=== PATIENT | female | born 1930 | race Caucasian/White ===

== ENCOUNTER 2017-07-01 12:30 | Emergency (ER) | payer MEDICARE, OTHER ==
[~2017-07-01] VITALS: Ht 152.4 cm; Wt 65.0 kg
[~2017-07-01 12:30] MED LIST: ADOXA100 PO; AMARYL4 MG PO; ASPIRIN 81M81 MG/TA2 PO; ATENOLOL25 MG PO; CARDIZEM CD 24240 MG PO; CEFTIN500 MG PO; CLEOCIN HC150 MG/CAP PO; COLACE 100100 MG/CAP PO; COREG12.5 MG PO; COZAAR 25MG25 MG/TAB PO; DESYREL 50MG50 MG PO; DIOVAN HCT 12.51 TAB PO; DIOVAN/HCT 12.51 TAB PO; DULCOLAX S10 MG/SUPP RC; GLUCOPHAGE1000 MG PO; GLUCOPHAGE500 MG/TAB PO; IPRATROPIUM BROM3 M1 IH; IRON TABLETS325 MG PO; JANUVIA 100MG100 MG PO; JANUVIA100 MG PO; LASIX 20MG TABL20 MG PO; LEVAQUIN 5500 MG/TA1 PO; LEVEMIR100 U/ML SC; LIPITOR20 MG PO; METFORMIN1000 MG PO; MILK OF MA400 MG/5 M; MYLANTA 150 ML150 M1 PO; NORVASC 10MG10 MG PO; NORVASC 5MG5 MG/TAB PO; PACERONE200 MG PO; PREVACID 30MG30 M1 PO; TENORMIN 5050 MG/TAB PO; TYLENOL 325MG325 MG PO; XARELTO10 MG PO; XARELTO15 MG PO; XARELTO20 MG PO
[2017-07-01 12:39] VITALS: BP 167/74; TEMP 98.2
[2017-07-01 13:46] LABS: BASO # 0.1 (0.0-0.2); BASO % 1.2 % (0.0-2.0); EOS # 0.1 (0.0-0.7); EOS % 1.4 % (0-4.0); GRAN # 4.8 (1.4-6.5); GRAN % 72.1 % (42.2-75.2); HEMATOCRIT 35.5 % (37.0-47.0); HEMOGLOBIN 11.7 g/dl (12.5-16.0); LYMPH # 1.1 (1.2-3.4); LYMPH % 16.6 % (20.0-51.0); MEAN CELL VOLUME 94 fl (80.0-100.0); MEAN CORPUSCULAR HEMOGLOBIN 31 pg (27.0-31.0); MEAN CORPUSCULAR HGB CONC 33 g/dl (33.0-37.0); MEAN PLATELET VOLUME 9.6 fl (7.4-10.4); MONO # 0.5 (0.1-0.6); MONO % 8.2 % (1.7-9.3); PLATELET COUNT 227 K/mm3 (130-400); RED BLOOD COUNT 3.76 M/mm3 (4.10-5.30); REDCELL DISTRIBUTION WIDTH-CV 12.9 % (11.5-14.5); WHITE BLOOD COUNT 6.6 K/mm3 (4.8-10.8)
[2017-07-01 13:57] LABS: ADJUSTED CALCIUM 9.1 mg/dL (8.4-10.2); ALANINE AMINOTRANSFERASE 24 U/L (9-52); ALBUMIN 3.7 gm/dL (3.5-5.0); ALKALINE PHOSPHATASE 100 U/L (50-136); ANION GAP 9 mmol/L (7-16); BILIRUBIN,TOTAL 0.5 mg/dL (0.0-1.0); BLOOD UREA NITROGEN 19 mg/dL (7-17); CALCIUM 8.9 mg/dL (8.4-10.2); CARBON DIOXIDE 25 mmol/L (22-30); CHLORIDE 102 mmol/L (98-107); CREATININE, serum 0.91 mg/dL (0.52-1.25); GLUCOSE 169 mg/dL (74-106); LIPASE 54 U/L (23-300); POTASSIUM 4.4 mmol/L (3.4-5.0); SODIUM 136 mmol/L (137-145); TOTAL PROTEIN 6.4 gm/dL (6.4-8.2)
[2017-07-01 13:58] LABS: C-REACTIVE PROTEIN < 0.5 mg/dL (0.0-0.9)
[2017-07-01 14:09] LABS: TROPONIN-I < 0.012 ng/mL (0.000-0.034)
[2017-07-01 14:14] LABS: PH 7 (5-8); SQUAMOUS EPITHELIAL 0-2 /hpf; URINE APPEARANCE Clear; URINE BACTERIA Rare /hpf; URINE BILIRUBIN Negative (NEGATIVE); URINE BLOOD Negative (NEGATIVE); URINE COLOR Straw; URINE GLUCOSE Negative (NEGATIVE); URINE KETONE Negative (NEGATIVE); URINE RBC 0-2 /hpf; URINE UROBILINOGEN Negative (NEGATIVE); URINE WBC None Seen /hpf
[2017-07-01] MEDS ORDERED: NORCO 325 MG-51 TAB PO (17:13)
[2017-07-01 17:28] VITALS: PULSE 76
== END 2017-07-01 17:30 | disposition home or self-care (01) ==
LOC: COL.ER 12:30
PROVIDERS: Emergency Medicine
DX: R10.32 Left lower quadrant pain (principal); T84.091A Other mechanical complication of internal left hip prosthesis, initial encounter; E11.9 Type 2 diabetes mellitus without complications; I10 Essential (primary) hypertension; E78.5 Hyperlipidemia, unspecified; Z90.49 Acquired absence of other specified parts of digestive tract; Z90.710 Acquired absence of both cervix and uterus; Z79.82 Long term (current) use of aspirin; Z79.84 Long term (current) use of oral hypoglycemic drugs
CPT/HCPCS: J2270; J2405; J7030; Q9967

== ENCOUNTER 2018-05-25 15:48 | Emergency (ER) | payer MEDICARE ==
[~2018-05-25] VITALS: Ht 152.4 cm; Wt 65.9 kg
[~2018-05-25 15:48] MED LIST changes: +NORCO 325 MG-51 TAB PO
[2018-05-25 15:50] VITALS: TEMP 98.9
[2018-05-25 18:45] VITALS: BP 142/71; PULSE 78
== END 2018-05-25 18:45 | disposition home or self-care (01) ==
LOC: COL.ER 15:48
DX: M25.552 Pain in left hip (principal); Z98.890 Other specified postprocedural states
CPT/HCPCS: J1885

== ENCOUNTER 2018-07-16 07:05 | Observation (INO) | payer MEDICARE ==
[~2018-07-16] VITALS: Ht 152.4 cm; Wt 64.5 kg
[2018-07-16 07:36] LABS: MEAN CELL VOLUME 96 fl (80.0-100.0); MEAN CORPUSCULAR HEMOGLOBIN 31 pg (27.0-31.0); MEAN CORPUSCULAR HGB CONC 33 g/dl (33.0-37.0); MEAN PLATELET VOLUME 9.4 fl (7.4-10.4); PLATELET COUNT 205 K/mm3 (130-400); REDCELL DISTRIBUTION WIDTH-CV 14.4 % (11.5-14.5)
[2018-07-16 07:38] LABS: HEMATOCRIT 30.6 % (37.0-47.0)
[2018-07-16] MEDS ORDERED: CENTRUM SILVER1 CTB PO (07:38)
[2018-07-16] MEDS ORDERED: MOBIC15 MG PO (07:39)
[2018-07-16] MEDS ORDERED: TAPAZOLE10 MG PO (07:40)
[2018-07-16] MEDS ORDERED: LEXAPRO 10MG10 MG PO ×2 (07:40→11:09)
[2018-07-16] MEDS ORDERED: MIRALAX PA17 GM/Dose PO (07:41)
[2018-07-16] MEDS ORDERED: PROBIOTIC-MAJOR PO (07:41)
[2018-07-16] MEDS ORDERED: RESTASIS MULTI5.5 ML OP (07:41)
[2018-07-16 07:48] LABS: ALBUMIN 3.1 gm/dL (3.5-5.0); BILIRUBIN,TOTAL 0.6 mg/dL (0.0-1.0); CALCIUM 7.9 mg/dL (8.4-10.2); POTASSIUM 4.4 mmol/L (3.4-5.0); TOTAL PROTEIN 5.7 gm/dL (6.4-8.2)
[2018-07-16 07:58] LABS: BAND 1 % (0-10); BASOPHIL 2 % (0-2); LYMPHOCYTE 1 % (20.0-51.0); METAMYELOCYTE 1 % (0-0); NEUTROPHILS 93 % (42.0-75.2); PLATELET ESTIMATE NORMAL (NORMAL)
[2018-07-16 07:59] LABS: POLYCHROMASIA 1+
[2018-07-16 08:16] LABS: MUCOUS Present /lpf; PH 5 (5-8); SQUAMOUS EPITHELIAL None Seen /hpf; URINE APPEARANCE Clear; URINE BACTERIA Rare /hpf; URINE BILIRUBIN Negative (NEGATIVE); URINE BLOOD Negative (NEGATIVE); URINE COLOR Yellow; URINE GLUCOSE Negative (NEGATIVE); URINE KETONE Trace (NEGATIVE); URINE LEUKOCYTE ESTERASE Trace (NEGATIVE); URINE NITRATE Positive (NEGATIVE); URINE PROTEIN(semi-quant) Negative (NEGATIVE); URINE RBC 0-2 /hpf; URINE UROBILINOGEN Negative (NEGATIVE)
[2018-07-16] MEDS ORDERED: DITROPAN 5MG TAB5 MG PO (11:11)
[2018-07-16] MEDS ORDERED: TYLENOL 500MG500 MG PO (11:15)
[2018-07-16] MEDS ORDERED: COZAAR 25MG25 MG/TAB PO (11:16)
[2018-07-16 11:50] LABS: COLLECTION METHOD CATHETER
[2018-07-16 12:17] VITALS: BP 106/42; PULSE 79; TEMP 99
[2018-07-16 12:21] VITALS: BP 110/42; PULSE 78
[2018-07-16 12:23] VITALS: BP 111/37; PULSE 71
[2018-07-16 15:37] VITALS: BP 129/52; PULSE 79; TEMP 98.9
[2018-07-16 21:24] VITALS: BP 108/41; PULSE 70; TEMP 98.2
[2018-07-17] VITALS (8 sets, daily range): BP systolic 103–131; BP diastolic 35–54; PULSE 69–84; TEMP 97.8–99
[2018-07-17 06:26] LABS: BASO # 0.1 (0.0-0.2); BASO % 0.6 % (0.0-2.0); EOS # 0.2 (0.0-0.7); EOS % 2.4 % (0-4.0); GRAN # 5.3 (1.4-6.5); GRAN % 68.1 % (42.2-75.2); LYMPH # 1.3 (1.2-3.4); LYMPH % 16.1 % (20.0-51.0); MEAN CELL VOLUME 100 fl (80.0-100.0); MEAN CORPUSCULAR HGB CONC 31 g/dl (33.0-37.0); MONO % 12.3 % (1.7-9.3); PLATELET COUNT 205 K/mm3 (130-400); RED BLOOD COUNT 2.77 M/mm3 (4.10-5.30)
[2018-07-17 06:32] LABS: CALCIUM 7.5 mg/dL (8.4-10.2); CREATININE, serum 0.89 mg/dL (0.52-1.25); HEMATOCRIT 27.8 % (37.0-47.0); HEMOGLOBIN 8.7 g/dl (12.5-16.0); MEAN CORPUSCULAR HEMOGLOBIN 31 pg (27.0-31.0); POTASSIUM 4.3 mmol/L (3.4-5.0)
[2018-07-18 00:09] VITALS: BP 114/52; PULSE 72; TEMP 98.5
[2018-07-18 04:38] VITALS: BP 111/78; PULSE 74; TEMP 98.5
[2018-07-18 06:40] LABS: BASO # 0.1 (0.0-0.2); BASO % 0.8 % (0.0-2.0); EOS # 0.3 (0.0-0.7); EOS % 3.4 % (0-4.0); GRAN # 5.8 (1.4-6.5); LYMPH % 12.2 % (20.0-51.0); MEAN CELL VOLUME 98 fl (80.0-100.0); MEAN CORPUSCULAR HGB CONC 32 g/dl (33.0-37.0); MEAN PLATELET VOLUME 10.2 fl (7.4-10.4); MONO # 0.8 (0.1-0.6); PLATELET COUNT 201 K/mm3 (130-400); RED BLOOD COUNT 2.89 M/mm3 (4.10-5.30); REDCELL DISTRIBUTION WIDTH-CV 14.8 % (11.5-14.5)
[2018-07-18 06:41] LABS: HEMATOCRIT 28.2 % (37.0-47.0); MEAN CORPUSCULAR HEMOGLOBIN 31 pg (27.0-31.0)
[2018-07-18 06:54] LABS: CALCIUM 7.9 mg/dL (8.4-10.2); CREATININE, serum 0.82 mg/dL (0.52-1.25); POTASSIUM 4.3 mmol/L (3.4-5.0)
[2018-07-18 07:31] VITALS: BP 160/66; PULSE 76; TEMP 98.9
[2018-07-18] MEDS ORDERED: OMNICEF 300MG300 MG PO (09:41)
[2018-07-18 13:45] VITALS: BP 160/66; PULSE 76; TEMP 98.9
== END 2018-07-18 13:51 ==
LOC: COL.ER 07:05 → MEDICAL 09:03
PROVIDERS: Family Medicine; Internal Medicine; Physician Assistant
DX: R55 Syncope and collapse (principal); E11.9 Type 2 diabetes mellitus without complications; N39.0 Urinary tract infection, site not specified; D72.828 Other elevated white blood cell count; I48.0 Paroxysmal atrial fibrillation; E78.5 Hyperlipidemia, unspecified; R79.89 Other specified abnormal findings of blood chemistry; Z85.3 Personal history of malignant neoplasm of breast; Z95.2 Presence of prosthetic heart valve; Z95.0 Presence of cardiac pacemaker; Z79.82 Long term (current) use of aspirin; Z79.4 Long term (current) use of insulin; Z90.710 Acquired absence of both cervix and uterus; Z90.12 Acquired absence of left breast and nipple; Z96.643 Presence of artificial hip joint, bilateral
CPT/HCPCS: 99232-AI; G0378; G8978-GP; G8979-GP; J0696; J1644; J1815; J7030

== ENCOUNTER → 2018-08-23 | Outpatient (CLI) | payer MEDICARE, OTHER ==
[~2018-08-23] MED LIST changes: +CENTRUM SILVER1 CTB PO; +DITROPAN 5MG TAB5 MG PO; +LEXAPRO 10MG10 MG PO; +MIRALAX PA17 GM/Dose PO; +MOBIC15 MG PO; +OMNICEF 300MG300 MG PO; +PROBIOTIC-MAJOR PO; +RESTASIS MULTI5.5 ML OP; +TAPAZOLE10 MG PO; +TYLENOL 500MG500 MG PO
== END ==
LOC: COL.RAD 10:55
DX: M51.36 Other intervertebral disc degeneration, lumbar region (principal); M48.061 Spinal stenosis, lumbar region without neurogenic claudication; M43.17 Spondylolisthesis, lumbosacral region; M47.816 Spondylosis without myelopathy or radiculopathy, lumbar region; Z90.49 Acquired absence of other specified parts of digestive tract; Z96.643 Presence of artificial hip joint, bilateral; R10.84 Generalized abdominal pain; Z90.710 Acquired absence of both cervix and uterus
CPT/HCPCS: Q9967

== ENCOUNTER → 2018-09-16 | Outpatient (CLI) | payer MEDICARE, OTHER | LOC: COL.RAD 08:01 | DX: K31.84 Gastroparesis (principal) | CPT/HCPCS: A9541 ==

== ENCOUNTER 2018-11-11 10:32 | Emergency (ER) | payer MEDICARE, OTHER ==
[~2018-11-11] VITALS: Ht 152.4 cm; Wt 57.7 kg
[2018-11-11 10:36] VITALS: TEMP 98
[2018-11-11 11:49] LABS: BASO # 0.1 (0.0-0.2); BASO % 1.1 % (0.0-2.0); EOS # 0.1 (0.0-0.7); GRAN # 5.5 (1.4-6.5); GRAN % 70.2 % (42.2-75.2); HEMATOCRIT 37.2 % (37.0-47.0); HEMOGLOBIN 12.1 g/dl (12.5-16.0); LYMPH # 1.5 (1.2-3.4); LYMPH % 18.6 % (20.0-51.0); MEAN CELL VOLUME 98 fl (80.0-100.0); MEAN CORPUSCULAR HEMOGLOBIN 32 pg (27.0-31.0); MEAN CORPUSCULAR HGB CONC 33 g/dl (33.0-37.0); MEAN PLATELET VOLUME 9.3 fl (7.4-10.4); MONO # 0.7 (0.1-0.6); MONO % 8.7 % (1.7-9.3); PLATELET COUNT 270 K/mm3 (130-400); RED BLOOD COUNT 3.81 M/mm3 (4.10-5.30); REDCELL DISTRIBUTION WIDTH-CV 13.7 % (11.5-14.5)
[2018-11-11 11:56] LABS: COLLECTION METHOD CATHETER
[2018-11-11 11:57] LABS: PROTHROMBIN TIME 11.5 SECONDS (9.7-12.8)
[2018-11-11 12:01] LABS: ALANINE AMINOTRANSFERASE 21 U/L (9-52); ALBUMIN 3.1 gm/dL (3.5-5.0); ALKALINE PHOSPHATASE 106 U/L (50-136); ANION GAP 5 mmol/L (7-16); AST,SGOT 24 U/L (15-37); BILIRUBIN,TOTAL < 0.1 mg/dL (0.0-1.0); BLOOD UREA NITROGEN 15 mg/dL (7-17); CALCIUM 8.4 mg/dL (8.4-10.2); CARBON DIOXIDE 26 mmol/L (22-30); CHLORIDE 106 mmol/L (98-107); CREATINE KINASE 25 U/L (30-135); CREATININE, serum 0.81 mg/dL (0.52-1.25); GLUCOSE 70 mg/dL (74-106); POTASSIUM 4.7 mmol/L (3.4-5.0); SODIUM 136 mmol/L (137-145); TOTAL PROTEIN 5.4 gm/dL (6.4-8.2)
[2018-11-11 12:05] LABS: PH 6 (5-8); SQUAMOUS EPITHELIAL None Seen /hpf; URINE APPEARANCE Clear; URINE BACTERIA Occasional /hpf; URINE BILIRUBIN Negative (NEGATIVE); URINE BLOOD Negative (NEGATIVE); URINE COLOR Yellow; URINE GLUCOSE Negative (NEGATIVE); URINE KETONE Negative (NEGATIVE); URINE LEUKOCYTE ESTERASE Trace (NEGATIVE); URINE NITRATE Negative (NEGATIVE); URINE PROTEIN(semi-quant) Negative (NEGATIVE); URINE RBC 0-2 /hpf; URINE UROBILINOGEN Negative (NEGATIVE)
[2018-11-11 12:14] LABS: TROPONIN-I < 0.012 ng/mL (0.000-0.034)
[2018-11-11] MEDS ORDERED: CEFTIN500 MG PO (13:28)
[2018-11-11 14:09] VITALS: BP 142/71; PULSE 72
== END 2018-11-11 14:11 | disposition home or self-care (01) ==
LOC: COL.ER 10:32
PROVIDERS: Emergency Medicine
DX: N39.0 Urinary tract infection, site not specified (principal); I48.91 Unspecified atrial fibrillation; E11.9 Type 2 diabetes mellitus without complications; R53.1 Weakness; Z90.49 Acquired absence of other specified parts of digestive tract; Z90.710 Acquired absence of both cervix and uterus; Z90.89 Acquired absence of other organs; Z95.0 Presence of cardiac pacemaker; Z85.3 Personal history of malignant neoplasm of breast; Z90.12 Acquired absence of left breast and nipple; Z79.82 Long term (current) use of aspirin
CPT/HCPCS: A4216; J0696; J7030

== ENCOUNTER → 2018-12-02 | Outpatient (REF) ==
[2018-12-02 18:13] LABS: COLLECTION METHOD CATHETER
[2018-12-02 18:16] LABS: BASO # 0.1 (0.0-0.2); BASO % 1.4 % (0.0-2.0); EOS # 0.2 (0.0-0.7); EOS % 2.7 % (0-4.0); GRAN # 5.6 (1.4-6.5); GRAN % 66.3 % (42.2-75.2); HEMOGLOBIN 11.1 g/dl (12.5-16.0); LYMPH # 1.7 (1.2-3.4); LYMPH % 19.6 % (20.0-51.0); MEAN CELL VOLUME 98 fl (80.0-100.0); MEAN CORPUSCULAR HEMOGLOBIN 32 pg (27.0-31.0); MEAN CORPUSCULAR HGB CONC 32 g/dl (33.0-37.0); MEAN PLATELET VOLUME 9.9 fl (7.4-10.4); MONO # 0.8 (0.1-0.6); MONO % 9.4 % (1.7-9.3); PLATELET COUNT 224 K/mm3 (130-400); REDCELL DISTRIBUTION WIDTH-CV 13.5 % (11.5-14.5)
[2018-12-02 18:17] LABS: HEMATOCRIT 34.3 % (37.0-47.0)
[2018-12-02 18:21] LABS: PH 5 (5-8); SQUAMOUS EPITHELIAL 0-2 /hpf; URINE APPEARANCE Clear; URINE BACTERIA None Seen /hpf; URINE BILIRUBIN Negative (NEGATIVE); URINE BLOOD Negative (NEGATIVE); URINE COLOR Yellow; URINE GLUCOSE Negative (NEGATIVE); URINE KETONE Negative (NEGATIVE); URINE LEUKOCYTE ESTERASE Negative (NEGATIVE); URINE NITRATE Negative (NEGATIVE); URINE PROTEIN(semi-quant) Negative (NEGATIVE); URINE UROBILINOGEN Negative (NEGATIVE)
[2018-12-02 18:32] LABS: CALCIUM 8.4 mg/dL (8.4-10.2); CREATININE, serum 0.84 mg/dL (0.52-1.25); POTASSIUM 5.1 mmol/L (3.4-5.0)
== END ==
LOC: ZCOL.LAB 18:12
PROVIDERS: Internal Medicine
DX: R53.1 Weakness (principal)

== ENCOUNTER 2019-04-06 12:21 | Inpatient (IN) | payer MEDICARE, OTHER ==
[~2019-04-06] VITALS: Ht 152.4 cm; Wt 61.6 kg
[2019-04-06 12:53] LABS: BASO # 0.1 (0.0-0.2); BASO % 1.5 % (0.0-2.0); EOS # 0.2 (0.0-0.7); GRAN # 5.7 (1.4-6.5); HEMOGLOBIN 10.2 g/dl (12.5-16.0); LYMPH # 1.4 (1.2-3.4); LYMPH % 16.9 % (20.0-51.0); MEAN CELL VOLUME 97 fl (80.0-100.0); MEAN CORPUSCULAR HEMOGLOBIN 31 pg (27.0-31.0); MEAN CORPUSCULAR HGB CONC 32 g/dl (33.0-37.0); MEAN PLATELET VOLUME 9.9 fl (7.4-10.4); MONO # 0.7 (0.1-0.6); MONO % 8.2 % (1.7-9.3); PLATELET COUNT 201 K/mm3 (130-400); RED BLOOD COUNT 3.31 M/mm3 (4.10-5.30); REDCELL DISTRIBUTION WIDTH-CV 14.6 % (11.5-14.5)
[2019-04-06 12:57] LABS: HEMATOCRIT 32.2 % (37.0-47.0)
[2019-04-06 13:00] LABS: PROTHROMBIN TIME 11.8 SECONDS (9.7-12.8)
[2019-04-06 13:02] LABS: PARTIAL THROMBOPLASTIN TIME 29.7 SECONDS (26.0-37.0)
[2019-04-06 13:04] LABS: ALANINE AMINOTRANSFERASE 22 U/L (9-52); ALBUMIN 3.2 gm/dL (3.5-5.0); ALKALINE PHOSPHATASE 89 U/L (50-136); ANION GAP 8 mmol/L (7-16); AST,SGOT 23 U/L (15-37); BILIRUBIN,TOTAL 0.3 mg/dL (0.0-1.0); BLOOD UREA NITROGEN 28 mg/dL (7-17); CALCIUM 8.5 mg/dL (8.4-10.2); CARBON DIOXIDE 23 mmol/L (22-30); CHLORIDE 107 mmol/L (98-107); CREATININE, serum 1.16 (0.52-1.25); GLUCOSE 189 mg/dL (74-106); MAGNESIUM 2.1 mg/dL (1.6-2.3); PHOSPHOROUS 4.4 mg/dL (2.5-4.5); POTASSIUM 5.1 mmol/L (3.4-5.0); SODIUM 138 mmol/L (137-145); TOTAL PROTEIN 5.7 gm/dL (6.4-8.2)
[2019-04-06 13:21] LABS: TROPONIN-I < 0.012 ng/mL (0.000-0.035)
[2019-04-06] MEDS ORDERED: CLARITIN 1010 MG/TAB PO (13:25)
[2019-04-06] MEDS ORDERED: MANNOSE PO (13:27)
[2019-04-06] MEDS ORDERED: REGLAN 5MG T5 MG/TAB PO (13:27)
[2019-04-06] MEDS ORDERED: IMODIUM 2MG CAPS2 MG PO (13:29)
[2019-04-06] MEDS ORDERED: MIRTAZAPINE7.5 MG PO (13:29)
[2019-04-06] MEDS ORDERED: LIPITOR20 MG PO (13:30)
[2019-04-06] MEDS ORDERED: MIRALAX PA17 GM/Dose PO (13:34)
[2019-04-06] MEDS ORDERED: PROBIOTIC-SUNMARK PO (13:34)
[2019-04-06] MEDS ORDERED: RESTASIS MULTI5.5 ML OP (13:35)
[2019-04-06] MEDS ORDERED: JANUVIA 100MG100 MG PO (13:36)
[2019-04-06 16:40] VITALS: BP 107/47; PULSE 116; TEMP 98.2
[2019-04-06 16:47] VITALS: BP 124/75; PULSE 120
[2019-04-06 16:49] VITALS: BP 121/71; PULSE 116
[2019-04-06 16:51] VITALS: BP 138/69; PULSE 121
[2019-04-06 16:54] LABS: COLLECTION METHOD CATHETER
[2019-04-06 17:04] LABS: PH 5 (5-8); SQUAMOUS EPITHELIAL None Seen /hpf; URINE APPEARANCE Clear; URINE BACTERIA None Seen /hpf; URINE BILIRUBIN Negative (NEGATIVE); URINE BLOOD Negative (NEGATIVE); URINE COLOR Straw; URINE GLUCOSE Negative (NEGATIVE); URINE KETONE Negative (NEGATIVE); URINE LEUKOCYTE ESTERASE Negative (NEGATIVE); URINE NITRATE Negative (NEGATIVE); URINE PROTEIN(semi-quant) Negative (NEGATIVE); URINE RBC 0-2 /hpf; URINE UROBILINOGEN Negative (NEGATIVE)
--- NOTE | 2019-04-06 18:18 | NUR ---
Pt admitted to unit around 1630 from the ED. Pt has RF IV patent and no redness or infiltration noted. Pt bilateral hands show some edema. Pt BLE slight edema noted. Pt up with assist and walker. Pt alert and oriented and neuro WNL. Pt denies SOB or chest pain at rest. Pt oriented to room and has call light in reach. Pt Ddimer critical and called to Dr. Curry. Order to give scheduled lovenox early.
--- NOTE | 2019-04-06 20:30 | NUR ---
Initial shift assessment done- pleasant, alert/oriented denies pain. states she feels ok tonight- denies SOB, Tele on- afib/paced, no requests-
[2019-04-06 21:02] VITALS: BP 113/70; PULSE 83; TEMP 98.9
[2019-04-07] VITALS (7 sets, daily range): BP systolic 100–134; BP diastolic 59–90; PULSE 68–109; TEMP 98–99
[2019-04-07 06:10] LABS: BASO # 0.1 (0.0-0.2); BASO % 1.6 % (0.0-2.0); EOS # 0.3 (0.0-0.7); EOS % 4.7 % (0-4.0); GRAN # 3.9 (1.4-6.5); GRAN % 60.9 % (42.2-75.2); HEMATOCRIT 33.1 % (37.0-47.0); HEMOGLOBIN 10.4 g/dl (12.5-16.0); LYMPH # 1.4 (1.2-3.4); LYMPH % 22.4 % (20.0-51.0); MEAN CELL VOLUME 97 fl (80.0-100.0); MEAN CORPUSCULAR HEMOGLOBIN 31 pg (27.0-31.0); MEAN CORPUSCULAR HGB CONC 31 g/dl (33.0-37.0); MEAN PLATELET VOLUME 9.8 fl (7.4-10.4); MONO # 0.6 (0.1-0.6); MONO % 10.1 % (1.7-9.3); PLATELET COUNT 197 K/mm3 (130-400); REDCELL DISTRIBUTION WIDTH-CV 14.8 % (11.5-14.5)
[2019-04-07 06:19] LABS: ANION GAP 8 mmol/L (7-16); BLOOD UREA NITROGEN 25 mg/dL (7-17); CARBON DIOXIDE 27 mmol/L (22-30); CHLORIDE 106 mmol/L (98-107); CREATININE, serum 1.16 (0.52-1.25); GLUCOSE 139 mg/dL (74-106); POTASSIUM 4.5 mmol/L (3.4-5.0); SODIUM 141 mmol/L (137-145)
[2019-04-07 06:32] LABS: TROPONIN-I < 0.012 ng/mL (0.000-0.035)
--- NOTE | 2019-04-07 06:43 | NUR ---
Quiet night- no requests, Up to bathroom with assist/walker-voided 200cc clear yellow urine- depends was also very wet- cleaned up and back to bed- very pleasant, VSS
--- NOTE | 2019-04-07 11:48 | NUR ---
GRANT met with the patient and patient's [id number] to discuss discharge plan. The patient lives at [facility] in [facility]. She reports needing assistance with bathing and has a 4WW. She states that she has [facility] and that they check in on her twice a day and help her with bathing and medication management. GRANT contacted and confirmed services from [facility] and [facility]. [facility] states her services are private pay and are for the nursing and home health aides. The patient's PCP is Dr. Jack Hummel and she receives her medications by delivery through [facility]. She reports no difficulties obtaining her meds. The patient's advanced directive are in EMR. The patient plans to return back to her apartment at [facility] and resume services from [facility] upon discharge. PT/OT have been ordered. GRANT to continue to follow.
--- NOTE | 2019-04-07 11:56 | NUR ---
Assessment completed, alert/oriented, vital signs stable, heart still in A.fib rate 110-120/ Cardiology has been consulted and were by this morning to see patient, she is diuresing well with lasix, left arm still a little swollen and D-dymer was elevated/ doing LUE ultrasound to r/o DVT, no resp.difficulty at rest/ does have some dyspnea with exertion/ fine crackles in bases, she denies other needs at this time, will discuss plan of care with hospitalist
[2019-04-08 04:21] VITALS: BP 94/66; PULSE 84; TEMP 98.1
--- NOTE | 2019-04-08 06:07 | NUR ---
PT HAD UNEVENTFUL NOC. NO ISSUES OR CONSERNS VOICED. APPEARED TO HAVE SLEPT WELL.
[2019-04-08 07:10] LABS: BASO # 0.1 (0.0-0.2); BASO % 1.5 % (0.0-2.0); EOS # 0.3 (0.0-0.7); EOS % 4.2 % (0-4.0); GRAN # 4.1 (1.4-6.5); GRAN % 58.8 % (42.2-75.2); HEMOGLOBIN 10.4 g/dl (12.5-16.0); LYMPH # 1.6 (1.2-3.4); LYMPH % 23.4 % (20.0-51.0); MEAN CELL VOLUME 99 fl (80.0-100.0); MEAN CORPUSCULAR HEMOGLOBIN 31 pg (27.0-31.0); MEAN CORPUSCULAR HGB CONC 31 g/dl (33.0-37.0); MEAN PLATELET VOLUME 9.7 fl (7.4-10.4); MONO # 0.8 (0.1-0.6); MONO % 11.8 % (1.7-9.3); PLATELET COUNT 198 K/mm3 (130-400); RED BLOOD COUNT 3.37 M/mm3 (4.10-5.30); REDCELL DISTRIBUTION WIDTH-CV 14.8 % (11.5-14.5)
[2019-04-08 07:12] LABS: HEMATOCRIT 33.2 % (37.0-47.0)
[2019-04-08 07:22] LABS: CALCIUM 9.1 mg/dL (8.4-10.2); CREATININE, serum 1.25 (0.52-1.25); MAGNESIUM 1.9 mg/dL (1.6-2.3); POTASSIUM 4.4 mmol/L (3.4-5.0)
[2019-04-08 08:10] VITALS: BP 103/64; PULSE 89; TEMP 97.6
--- NOTE | 2019-04-08 11:51 | NUR ---
Asssessment completed, alert/oriented, vital signs stable, denies pain or discomfort, stated she slept good and feels better today, she has been diuresing well on the lasix/ she is partially incontinent so documented I/O are not very accurate / but she is having good output, lungs sound better today/ NO crackles noted in bases as there were yesterday, heart irregular but rate controlled, she dnies other needs
[2019-04-08] MEDS ORDERED: ELIQUIS 2.5 PO (11:53)
--- NOTE | 2019-04-08 11:53 | NUR ---
GRANT met with the patient to review disharge plan and to discuss occupational therapies recommendation of home health. The patient reports that she would be agreeable to adding on therapy services and longterm. GRANT contacted and faxed updates to Eddie at [facility]. Eddie reports that they can accept the patient for those services. The patient is to discharge back to [facility] with home health services for longterm/PT/OT and private duty aides through [facility]. No additional needs at this time.
[2019-04-08] MEDS ORDERED: LOPRESSOR 550 MG/TAB PO (11:54)
[2019-04-08] MEDS ORDERED: LASIX 20MG TABL20 MG PO (11:54)
--- NOTE | 2019-04-08 15:42 | NUR ---
Discharge instructions reviewed with the patient, instructed to follow up with PCP and Cardiology as we have shceudled for her, Home health / [facility] independent living situation was taken care of by social work prior to discharge, patient has a nurse that sets up her meds in a weekly organizer/ our pharmacist has spoke with her and she will be setting the patient medications up for her today as there are several new meds / changes/ meds to stop, I removed her IV and telemetry, she is leaving with her son in-law, i personally escorted them out the door
== END 2019-04-08 15:44 | DRG 308 ==
LOC: COL.ER 12:21 → MEDICAL 15:07
PROVIDERS: Emergency Medicine; Nurse Practitioner Family; ADMIT Internal Medicine
DX: I48.0 Paroxysmal atrial fibrillation (principal); I50.23 Acute on chronic systolic (congestive) heart failure; I50.32 Chronic diastolic (congestive) heart failure; I11.0 Hypertensive heart disease with heart failure; E89.0 Postprocedural hypothyroidism; E11.43 Type 2 diabetes mellitus with diabetic autonomic (poly)neuropathy; I95.1 Orthostatic hypotension; K31.84 Gastroparesis; I08.1 Rheumatic disorders of both mitral and tricuspid valves; I25.10 Atherosclerotic heart disease of native coronary artery without angina pectoris; K21.9 Gastro-esophageal reflux disease without esophagitis; I45.10 Unspecified right bundle-branch block; E78.5 Hyperlipidemia, unspecified; I27.20 Pulmonary hypertension, unspecified; R53.81 Other malaise; Z79.82 Long term (current) use of aspirin; Z85.3 Personal history of malignant neoplasm of breast; Z87.440 Personal history of urinary (tract) infections; Z95.0 Presence of cardiac pacemaker; Z95.2 Presence of prosthetic heart valve; Z86.73 Personal history of transient ischemic attack (TIA), and cerebral infarction without residual deficits; Z90.710 Acquired absence of both cervix and uterus
CPT/HCPCS: 99223-AI; 99233-AI; 99238; A9284; J1650; J1815

== ENCOUNTER → 2019-04-24 | Outpatient (CLI) | payer MEDICARE, OTHER ==
[~2019-04-24] MED LIST changes: +CLARITIN 1010 MG/TAB PO; +ELIQUIS 2.5 PO; +IMODIUM 2MG CAPS2 MG PO; +LOPRESSOR 550 MG/TAB PO; +MANNOSE PO; +MIRTAZAPINE7.5 MG PO; +PROBIOTIC-SUNMARK PO; +REGLAN 5MG T5 MG/TAB PO
[2019-04-24 18:39] LABS: COLLECTION METHOD CLEAN CATCH
[2019-04-24 18:47] LABS: PH 5 (5-8); SQUAMOUS EPITHELIAL 0-2 /hpf; URINE APPEARANCE Clear; URINE BACTERIA None Seen /hpf; URINE BILIRUBIN Negative (NEGATIVE); URINE BLOOD Negative (NEGATIVE); URINE COLOR Yellow; URINE GLUCOSE Negative (NEGATIVE); URINE KETONE Negative (NEGATIVE); URINE LEUKOCYTE ESTERASE Negative (NEGATIVE); URINE NITRATE Negative (NEGATIVE); URINE PROTEIN(semi-quant) Negative (NEGATIVE); URINE RBC None Seen /hpf; URINE UROBILINOGEN Negative (NEGATIVE)
== END ==
LOC: ZCOL.LAB 17:26
PROVIDERS: Internal Medicine
DX: N39.0 Urinary tract infection, site not specified (principal)

== ENCOUNTER → 2019-05-18 | Outpatient (CLI) | payer MEDICARE, OTHER ==
[2019-05-18 10:16] LABS: COLLECTION METHOD CLEAN CATCH
[2019-05-18 10:29] LABS: PH 7 (5-8); SQUAMOUS EPITHELIAL None Seen /hpf; URINE APPEARANCE Clear; URINE BACTERIA None Seen /hpf; URINE BILIRUBIN Negative (NEGATIVE); URINE BLOOD Negative (NEGATIVE); URINE COLOR Straw; URINE GLUCOSE Negative (NEGATIVE); URINE KETONE Negative (NEGATIVE); URINE LEUKOCYTE ESTERASE Negative (NEGATIVE); URINE NITRATE Negative (NEGATIVE); URINE PROTEIN(semi-quant) Negative (NEGATIVE); URINE RBC 0-2 /hpf; URINE UROBILINOGEN Negative (NEGATIVE)
== END ==
LOC: ZLAB.STJ 09:57 → ZCOL.LAB 09:57
PROVIDERS: Internal Medicine
DX: N39.0 Urinary tract infection, site not specified (principal)

== ENCOUNTER → 2019-06-23 | Outpatient (CLI) | payer MEDICARE, OTHER ==
[2019-06-23 23:31] LABS: COLLECTION METHOD CLEAN CATCH
[2019-06-23 23:39] LABS: MUCOUS Present /lpf; PH 5 (5-8); SQUAMOUS EPITHELIAL 0-2 /hpf; URINE APPEARANCE Hazy; URINE BACTERIA Rare /hpf; URINE BILIRUBIN Negative (NEGATIVE); URINE BLOOD Negative (NEGATIVE); URINE CALCIUM OXALATE CRYSTAL Present /hpf; URINE COLOR Yellow; URINE GLUCOSE Negative (NEGATIVE); URINE KETONE Negative (NEGATIVE); URINE LEUKOCYTE ESTERASE Trace (NEGATIVE); URINE NITRATE Negative (NEGATIVE); URINE PROTEIN(semi-quant) Negative (NEGATIVE); URINE RBC 0-2 /hpf; URINE UROBILINOGEN Negative (NEGATIVE)
== END ==
LOC: ZCOL.LAB 23:23
PROVIDERS: Internal Medicine
DX: Z01.89 Encounter for other specified special examinations (principal)

== ENCOUNTER → 2019-10-16 | Outpatient (CLI) | payer MEDICARE, OTHER ==
[2019-10-16 12:29] LABS: ALBUMIN 3.5 gm/dL (3.5-5.0); BILIRUBIN,TOTAL 0.3 mg/dL (0.0-1.0); CALCIUM 8.7 mg/dL (8.4-10.2); CREATININE, serum 1.06 (0.52-1.25); POTASSIUM 4.7 mmol/L (3.4-5.0); TOTAL PROTEIN 6.3 gm/dL (6.4-8.2)
== END ==
LOC: ZCOL.LAB 12:05
PROVIDERS: Family Medicine
DX: E11.39 Type 2 diabetes mellitus with other diabetic ophthalmic complication (principal)